=== PATIENT | male | born 1985 | race Caucasian/White ===

== ENCOUNTER 2016-09-16 18:42 | Observation (INO) | payer BC ==
[~2016-09-16] VITALS: Ht 175.3 cm; Wt 73.3 kg
--- NOTE | 2016-09-16 18:54 | PHYS DOC ---
Adult General Chief Complaint Chief Complaint: ANXIETY/PANIC ATTACK HPI HPI Patient is a 30 year old male who presents with increased anxiety and thoughts of suicide. Patient states his family convinced him to come to the emergency room because they were scared acute harm himself. Patient admits that her last week and had thoughts of suicide. Patient states currently he is not suicidal. Patient did not want to share his plan how he wanted to harm himself. Patient states he's been having what he describes as "freak out" more consistently. Patient was on antianxiety medication at one time. Patient currently is on no medications. Patient denies any chest pain or shortness of breath. Patient has no other complaints. Pertinent exam findings: Tachycardia Anxiety ED course: Patient seen on arrival and a CBC, CMP, urine drug screen, TSH, EKG were ordered 2114: Patient underwent interview via tele-psych 2120: Discussed CC/HP/PMH with via tele-psych and recommends admit for detox and depression and also self-harm 2129: Discussed CC/HP/PMH with Dr. Jackson and recommends admit and would like a psych consult Pertinent findings: Urine positive for ethyl alcohol MDM: After reviewing the chart, CC/HPI/PMH, physical exam, lab results and talking with the tele-psych physician we will make the patient for medical detox and evaluation of his depression ideas of self-harm. Review of Systems Review of Systems Constitutional: Depression, anxiety Eyes: Denies change in visual acuity, redness, or eye pain [] HENT: Denies nasal congestion or sore throat [] Respiratory: Denies cough or shortness of breath [] Cardiovascular: No additional information not addressed in HPI [] GI: Denies abdominal pain, nausea, vomiting, bloody stools or diarrhea [] : Denies dysuria or hematuria [] Musculoskeletal: Denies back pain or joint pain [] Integument: Denies rash or skin lesions [] Physical Exam Physical Exam Constitutional: Well developed, well nourished, anxious, non-toxic appearance. [ ] HENT: Normocephalic, atraumatic, bilateral external ears normal, dry mucous membranes, no oral exudates, nose normal. [] Eyes: PERRLA, EOMI, conjunctiva normal, no discharge. [] Neck: Normal range of motion, no tenderness, supple, no stridor. [] Cardiovascular: Tachycardia, no murmur [] Lungs & Thorax: Bilateral breath sounds clear to auscultation [] Abdomen: Bowel sounds normal, soft, no tenderness, no masses, no pulsatile masses. [] Skin: Warm, dry, no erythema, no rash. [] Back: No tenderness, no CVA tenderness. [] Extremities: No tenderness, no cyanosis, no clubbing, ROM intact, no edema. [] Neurologic: Alert and oriented X 3, normal motor function, normal sensory function, no focal deficits noted. [] Psychologic: Depressed, anxious, history of thoughts of self-harm Current Patient Data Lab Results Laboratory Tests Test 09/16/16 18:56 09/16/16 19:17 Urine Collection Type Unknown Urine Color Yellow Urine Clarity Clear Urine pH 5.0 Urine Specific [place] 1.025 Urine Protein Neg (NEG-TRACE) Urine Glucose (UA) Neg mg/dL (NEG) Urine Ketones (Stick) Trace mg/dL (NEG) Urine Blood Neg (NEG) Urine Nitrite Neg (NEG) Urine Bilirubin Neg (NEG) Urine Urobilinogen Dipstick 0.2 mg/dL (0.2 mg/dL) Urine Leukocyte Esterase Neg (NEG) Urine RBC Occ /HPF (0-2) Urine WBC 1-4 /HPF (0-4) Urine Squamous Epithelial Cells Occ /LPF Urine Bacteria 0 /HPF (0-FEW) Urine Mucus Marked /LPF Urine Opiates Screen Neg (NEG) Urine Methadone Screen Neg (NEG) Urine Barbiturates Neg (NEG) Urine Phencyclidine Screen Neg (NEG) Urine Amphetamine/Methamphetamine Neg (NEG) Urine Benzodiazepines Screen Neg (NEG) Urine Cocaine Screen Neg (NEG) Urine Cannabinoids Screen Neg (NEG) Urine Ethyl Alcohol Pos (NEG) White Blood Count 7.9 x10^3/uL (4.0-11.0) Red Blood Count 5.37 x10^6/uL (4.30-5.70) Hemoglobin 16.7 g/dL (13.0-17.5) Hematocrit 47.5 % (39.0-53.0) Mean Corpuscular Volume 89 fL (79-100) Mean Corpuscular Hemoglobin 31 pg (25-35) Mean Corpuscular Hemoglobin Concent 35 g/dL (31-37) Red Cell Distribution Width 13.5 % (11.5-14.5) Platelet Count 269 x10^3/uL (140-400) Neutrophils (%) (Auto) 69 % (31-73) Lymphocytes (%) (Auto) 26 % (24-48) Monocytes (%) (Auto) 5 % (0-9) Eosinophils (%) (Auto) 1 % (0-3) Basophils (%) (Auto) 1 % (0-3) Neutrophils # (Auto) 5.4 x10^3uL (1.8-7.7) Lymphocytes # (Auto) 2.0 x10^3/uL (1.0-4.8) Monocytes # (Auto) 0.4 x10^3/uL (0.0-1.1) Eosinophils # (Auto) 0.0 x10^3/uL (0.0-0.7) Basophils # (Auto) 0.0 x10^3/uL (0.0-0.2) Sodium Level 139 mmol/L (136-145) Potassium Level 3.4 mmol/L (3.5-5.1) Chloride Level 99 mmol/L (98-107) Carbon Dioxide Level 22 mmol/L (21-32) Anion Gap 18 (6-14) Blood Urea Nitrogen 12 mg/dL (8-26) Creatinine 0.9 mg/dL (0.7-1.3) Estimated GFR (Cockcroft-Gault) 98.4 BUN/Creatinine Ratio 13 (6-20) Glucose Level 139 mg/dL (70-99) Calcium Level 8.8 mg/dL (8.5-10.1) Total Bilirubin 0.6 mg/dL (0.2-1.0) Aspartate Amino Transf (AST/SGOT) 22 U/L (15-37) Alanine Aminotransferase (ALT/SGPT) 27 U/L (16-63) Alkaline Phosphatase 101 U/L (46-116) Total Protein 8.0 g/dL (6.4-8.2) Albumin 4.5 g/dL (3.4-5.0) Albumin/Globulin Ratio 1.3 (1.0-1.7) EKG EKG EKG shows sinus tach rate of 106 no STEMI Radiology/Procedures Radiology/Procedures [] Course & Med Decision Making Course & Med Decision Making Pertinent Labs and Imaging studies reviewed. (See chart for details) [] Graciela Disclaimer Dragon Disclaimer This chart was dictated in whole or in part using Voice Recognition software in a busy, high-work load, and often noisy Emergency Department environment. It may contain unintended and wholly unrecognized errors or omissions. Departure Departure: Impression: Primary Impression: Depression Additional Impressions: Alcohol withdrawal History of suicidal ideation Disposition: ADMITTED INPATIENT Admitting Physician: Mayank Jackson Condition: STABLE Problem Qualifiers Primary Impression: Depression Depression Type: major depressive disorder Major depression recurrence: recurrent Active/Remission status: currently active Major depression episode severity: severe Psychotic features: without psychotic features Qualified Codes: F33.2 - Major depressive disorder, recurrent severe without psychotic features Additional Impressions: Alcohol withdrawal Complication of substance-induced condition: uncomplicated Qualified Codes: F10.230 - Alcohol dependence with withdrawal, uncomplicated ART HERNANDEZ DO September 16, 2016 18:54
--- NOTE | 2016-09-16 19:08 | EKG ---
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
[2016-09-16] MEDS ORDERED: LORazepam 2 MG/ML VIAL IV ONE ×2 (19:15→21:45)
[2016-09-16 19:36] LABS: BASO % 1 % (0-3); EOS % 1 % (0-3); HEMATOCRIT 47.5 % (39.0-53.0); HEMOGLOBIN 16.7 g/dL (13.0-17.5); LYMPH % 26 % (24-48); MEAN CORPUSCULAR HEMOGLOBIN 31 pg (25-35); MEAN CORPUSCULAR HGB CONC 35 g/dL (31-37); MEAN CORPUSCULAR VOLUME 89 fL (79-100); MONO # 0.4 x10^3/uL (0.0-1.1); MONO % 5 % (0-9); NEUT # 5.4 x10^3uL (1.8-7.7); NEUT % 69 % (31-73); PLATELET COUNT 269 x10^3/uL (140-400); RED BLOOD COUNT 5.37 x10^6/uL (4.30-5.70); RED CELL DISTRIBUTION WIDTH 13.5 % (11.5-14.5); WHITE BLOOD COUNT 7.9 x10^3/uL (4.0-11.0)
[2016-09-16 19:45] LABS: AMPHETAMINE/METHAMPHETAMINE NEG (NEG); BARBITURATES NEG (NEG); BENZODIAZEPINES NEG (NEG); CANNABINOIDS NEG (NEG); COCAINE NEG (NEG); METHADONE NEG (NEG); OPIATES NEG (NEG); PHENCYCLIDINE NEG (NEG)
[2016-09-16 19:45] LABS: ALBUMIN 4.5 g/dL (3.4-5.0); ALBUMIN/GLOBULIN RATIO 1.3 (1.0-1.7); CALCIUM 8.8 mg/dL (8.5-10.1); CREATININE 0.9 mg/dL (0.7-1.3); GFR 98.4; POTASSIUM 3.4 mmol/L (3.5-5.1); TOTAL BILIRUBIN 0.6 mg/dL (0.2-1.0)
[2016-09-16 19:54] LABS: BILIRUBIN,URINE NEG (NEG); CLARITY,URINE CLEAR; COLOR,URINE YELLOW; GLUCOSE,URINE NEG (NEG); UROBILINOGEN,URINE 0.2 mg/dL (0.2 mg/dL)
[2016-09-16 19:55] LABS: BACTERIA,URINE 0 /HPF (0-FEW); NITRITE,URINE NEG (NEG); RBC,URINE OCC /HPF (0-2); SQUAMOUS EPITHELIAL CELL,UR OCC /LPF
[2016-09-16] MEDS ORDERED: ONDANSETRON PF 4 MG/2 ML VIAL. IV PRN (21:45)
[2016-09-16] MEDS ORDERED: ACETAMINOPHEN 325 MG TABLET PO PRN (21:45)
[2016-09-16] MEDS ORDERED: IV NORMAL SALINE 1,000ML 1,000 ML IV ONE (21:45)
[2016-09-16] MEDS ORDERED: fentaNYL PF 100 MCG/2 ML VIAL IV PRN (21:45)
[2016-09-16 22:00] VITALS: BP 130/82
[2016-09-16] MEDS ORDERED: THIAMINE 100 MG in IV NORMAL SALINE 50ML 50 ML IV SCH (22:30)
[2016-09-16] MEDS: IV NORMAL SALINE 1,000ML 1,000 ML IV SCH (22:33)
[2016-09-16 23:00] VITALS: BP 117/62
[2016-09-17] VITALS (11 sets, daily range): BP systolic 97–137; BP diastolic 54–73
[2016-09-17] MEDS ORDERED: LORazepam 2 MG/ML VIAL IV PRN ×2 (00:15→08:15)
[2016-09-17] MEDS ORDERED: DIPH25CA58 PO (00:50)
--- NOTE | 2016-09-17 01:40 | ACF ---
Admission Criteria Forms PSYCHIATRIC DISORDERS Clinical Indications for Inpatient Care (Place 'X' for any and all applicable criteria): Ongoing inpatient care may be needed for ANY ONE of the following(1)(2)(3)(4)(6) (7)(8): [ ]I. Danger to self or others not manageable at lower level of care. [ ]II. Grave disability (eg, inability to perform self care necessary at lower level of care) [ ]III. Agitation or inappropriate behavior interfering with care for primary condition (eg, attempting to discontinue lines or drains prematurely, unable to cooperate with respiratory care) [X ]IV. Severe disability or disorder indicated by ALL of the following: [X ]a) Severe behavioral health disorder-related symptoms or condition indicated by ANY ONE of the following: [ ]i) Severe problem with cognition, memory, judgment, or impulse control [X]ii) Severe clinical manifestations (eg, hallucinations, delusions, other acute psychotic symptoms, leann, extreme agitation or anxiety) [X ]b) Patient management at lower level of care is not feasible until acute intervention or modification is initiated. Extended stay beyond goal length of stay for the primary condition may be indicated when ANY ONE of the following is present: (1)(2)(3)(4): [ ]a) Patient is a danger to self or others and not manageable at lower level of care. [ ]b) Behavior crisis management, including physical or chemical restraints, is required and is not available at a lower level of care. [ ]c) Behavioral symptoms (e.g., agitation, somnolence, inappropriate behavior) are present, and are not manageable at a lower level of care. [ ]d) Patient cannot understand follow-up treatment and crisis plan. [ ]e) Provider and supports are not sufficiently available at lower level of care. [ ]f) Patient cannot participate (e.g., verify absence of plan for harm) and is in needed of monitoring. The original [facility] [employer] content created by [facility] [employer] has been revised. The portions of the content which have been revised are identified through the use of italic text or in bold, and [facility] has neither reviewed nor approved the modified material. All other unmodified content is copyright [facility]. Please see references footnoted in the original [facility] edition 2016 Admission Criteria Met?: Yes JERE ANG September 17, 2016 01:40
[2016-09-17] MEDS: IV NORMAL SALINE 1,000ML 1,000 ML IV SCH ×3 (05:51→11:20)
[2016-09-17 06:20] LABS: BASO % 0 % (0-3); EOS # 0.3 x10^3/uL (0.0-0.7); EOS % 4 % (0-3); HEMATOCRIT 40.3 % (39.0-53.0); HEMOGLOBIN 14.3 g/dL (13.0-17.5); LYMPH # 2.2 x10^3/uL (1.0-4.8); LYMPH % 28 % (24-48); MEAN CORPUSCULAR HEMOGLOBIN 31 pg (25-35); MEAN CORPUSCULAR HGB CONC 36 g/dL (31-37); MEAN CORPUSCULAR VOLUME 89 fL (79-100); MONO # 0.7 x10^3/uL (0.0-1.1); MONO % 8 % (0-9); NEUT # 4.8 x10^3uL (1.8-7.7); NEUT % 60 % (31-73); PLATELET COUNT 213 x10^3/uL (140-400); RED BLOOD COUNT 4.55 x10^6/uL (4.30-5.70); RED CELL DISTRIBUTION WIDTH 13.6 % (11.5-14.5); WHITE BLOOD COUNT 8.1 x10^3/uL (4.0-11.0)
[2016-09-17 06:28] LABS: CALCIUM 7.8 mg/dL (8.5-10.1); CREATININE 0.9 mg/dL (0.7-1.3); GFR 98.4; POTASSIUM 3.4 mmol/L (3.5-5.1)
[2016-09-17] MEDS ORDERED: POTASSIUM CHLORIDE 20 MEQ TABLET.ER. PO ONE (08:00)
[2016-09-17] MEDS ORDERED: MVI, ADULT NO.4 WITH VIT K 10 ML, THIAMINE 100 MG, FOLIC ACID 1 MG in IV NORMAL SALINE ... IV SCH ×4 (09:00)
--- NOTE | 2016-09-17 14:26 | SSS ---
ADMIT DATE: 09/17/2016 HISTORY OF PRESENT ILLNESS: The patient is a 30-year-old male patient, who presented to the Emergency Room with increased anxiety and thoughts of suicide. He states that his family has convinced him to come to the Emergency Room because they were scared that he will harm himself. He admits that over the last week he had thoughts of suicide. The patient states currently he is not suicidal, did not want to share his plans; however, he wanted to harm himself. He apparently was on antianxiety medication at one point of time, but currently he is on no medication. He denies any other complaints. PAST MEDICAL HISTORY: Significant for anxiety, alcoholism and major depression. PAST SURGICAL HISTORY: Unremarkable. FAMILY HISTORY: Unremarkable. SOCIAL HISTORY: He is single. Does not smoke, drink alcohol or use recreational drugs. MEDICATIONS: He is currently on no medication. ALLERGIES: He is allergic to SULFONAMIDE ANTIBIOTIC. REVIEW OF SYSTEMS: As per history of present illness. PHYSICAL EXAMINATION: VITAL SIGNS: On arrival to the Emergency Room, the patient was tachycardic with an heart rate of 128, blood pressure was 110/79, temperature was 98, respiratory rate was 20, and oxygen saturation was 96% on room air. HEAD, EYES, EAR, NOSE AND THROAT: Showed normocephalic, atraumatic. NECK: Supple. HEART: Showed normal first and second heart sounds with no gallop, rub or murmur. CHEST: Clear to auscultation. No crepitation or rhonchi. ABDOMEN: Distended, soft, nontender. No guarding or rigidity. No organomegaly. All hernial orifices intact. Bowel sounds normal. PSYCHOLOGIC: He was clearly depressed, anxious, has history of thoughts of self-harm. LABORATORY DATA: While in the Emergency Room, he has had lab work done, which showed that his white cell count to be 7900, hemoglobin 16.7, hematocrit , MCV 89 and platelet count 269,000 with normal manual differential. His chemistry showed a serum sodium 159, potassium 3.4, chloride 99, bicarbonate 22, anion gap of 18, BUN 18, creatinine 0.9, estimated GFR was 98 mL per minute. His blood glucose was 139. Calcium was 8.8. Total bilirubin, AST, ALT, alkaline phosphatase were normal. Total protein was 8, albumin was 4.5. His TSH was 1.080. Urinalysis was essentially unremarkable. The urine was yellow, clear with a pH of 5, specific gravity of 1.025. The urine was negative for protein, ketones, glucose and it was negative for blood, nitrite, leukocyte esterase. There are occasional rbc's, 1 to 4 wbc's, no bacteria. His toxic screen was positive for alcohol. Apparently the ER physician discussed the presentation with the psychiatrist, who recommended admission for detoxification of depression and also for self-harm. We did consult our top case assembler. He was apparently admitted at [facility] in [place] for inpatient psychiatric stabilization. The patient was hemodynamically stable, afebrile and all his lab works were within normal range. JANNETTE MARSHALL MD DR: LUZ ELENA/junito JOB#: [id number] / [id number]
== END 2016-09-17 12:10 | disposition short-term general hospital (02) ==
LOC: ER 18:42 → INTOOBSV 21:40 → ICU 21:40
PROVIDERS: ADMIT Internal Medicine; ATTEND Internal Medicine
DX: F41.9 Anxiety disorder, unspecified (principal); F32.9 Major depressive disorder, single episode, unspecified; R45.851 Suicidal ideations; F10.239 Alcohol dependence with withdrawal, unspecified
CPT/HCPCS: 36415; 80048; 80053; 81001; 84443; 85027; 87641; 93005; 96365; 96366; 96367; 96375; 96376; 99285; G0378; G0480; G0481; J2060; G0379; J7030

== ENCOUNTER 2020-01-30 16:22 | Emergency (ER) | payer SELFPAY ==
[~2020-01-30] VITALS: Ht 175.3 cm; Wt 90.9 kg
[~2020-01-30 16:22] MED LIST: DIPH25CA58 PO
[2020-01-30] MEDS ORDERED: IV NORMAL SALINE 1,000ML 1,000 ML IV ONE ×2 (16:30→18:00)
[2020-01-30] MEDS ORDERED: ONDANSETRON PF 4 MG/2 ML VIAL. IVP ONE (16:30)
[2020-01-30] MEDS ORDERED: FAMOTIDINE 20 MG/2 ML VIAL IVP ONE (16:30)
[2020-01-30 16:50] LABS: BASO % 1 % (0-3); EOS % 0 % (0-3); HEMATOCRIT 45.3 % (39.0-53.0); HEMOGLOBIN 15.2 g/dL (13.0-17.5); LYMPH # 1.3 x10^3/uL (1.0-4.8); LYMPH % 29 % (24-48); MEAN CORPUSCULAR HEMOGLOBIN 31 pg (25-35); MEAN CORPUSCULAR HGB CONC 34 g/dL (31-37); MEAN CORPUSCULAR VOLUME 91 fL (79-100); MONO # 0.4 x10^3/uL (0.0-1.1); MONO % 9 % (0-9); NEUT # 2.7 x10^3uL (1.8-7.7); NEUT % 61 % (31-73); PLATELET COUNT 217 x10^3/uL (140-400); RED BLOOD COUNT 4.98 x10^6/uL (4.30-5.70); RED CELL DISTRIBUTION WIDTH 13.9 % (11.5-14.5); WHITE BLOOD COUNT 4.5 x10^3/uL (4.0-11.0)
[2020-01-30 16:53] LABS: CREATININE 1.5 mg/dL (0.7-1.3); GFR 53.3; POTASSIUM 3.4 mmol/L (3.5-5.1)
[2020-01-30 16:59] LABS: ALBUMIN/GLOBULIN RATIO 1.2 (1.0-1.7); MAGNESIUM 2.2 mg/dL (1.8-2.4); TOTAL BILIRUBIN 0.4 mg/dL (0.2-1.0); TOTAL PROTEIN 7.3 g/dL (6.4-8.2)
--- NOTE | 2020-01-30 17:00 | PHYS DOC ---
Past History Past Medical History: Bipolar Past Surgical History: Appendectomy, Other Additional Past Surgical Histo: wisdom teeth Smoking: Non-smoker (Former smoker) Alcohol Use: Sober Drug Use: Marijuana, Opiates General Adult EDM: Chief Complaint: OVERDOSE HPI: HPI: Patient is a 34-year-old male with a history of polysubstance abuse who presents to the emergency room with an accidental drug overdose. Patient states that he was at his friend's house around 3 PM when he "snorted" a drug up his nose. He states he does not remember what happened immediately after the use of the drug. He states he does not know what he drug he used. He reports to abusing alcohol, cocaine, opioids, benzodiazepines in the past and has been sober for 4-5 years before today's relapse. He does have a history of suicidal attempt on October of this year when he overdosed on Ambien. He states that he did not seek medical assistance at that time. Currently he is denying any suicidal or homicidal intent. He denies having any chest pain, shortness of breath, pain. He reports to having nausea, vomiting, body aches, drowsiness at this time. Per EMS, patient was found down in his friend's house and appeared cyanotic upon their arrival. He was given 2mg of Narcan intranasally en route by EMS. Review of Systems: Review of Systems: Constitutional: Denies fever or chills Eyes: Denies redness or eye pain HENT: Denies nasal congestion or sore throat Respiratory: Denies cough or shortness of breath Cardiovascular: Denies chest pain or palpitations GI: Denies abdominal pain, reports nausea and vomiting : Denies dysuria or hematuria Musculoskeletal: Denies back pain or joint pain Integument: Denies rash or skin lesions Neurologic: Denies headache, focal weakness or sensory changes, reports drow siness Complete systems were reviewed and found to be within normal limits, except as documented in this note. Current Medications: Current Meds: Current Medications Medications (Trade) Dose Ordered Sig/Atilio Start Time Stop Time Status Last Admin Dose Admin Famotidine (Pepcid Vial) 20 mg 1X ONCE 01/30/20 16:30 01/30/20 16:36 DC 01/30/20 16:43 20 MG Ondansetron HCl (Zofran) 4 mg 1X ONCE 01/30/20 16:30 10/7/20 16:36 DC 01/30/20 16:43 4 MG Sodium Chloride 1,000 ml @ 1,000 mls/hr 1X ONCE 01/30/20 16:30 01/30/20 17:29 01/30/20 16:41 1,000 MLS/HR Allergies: Allergies: Allergies Coded Allergies Type Severity Reaction Last Updated Verified Sulfa (Sulfonamide Antibiotics) Allergy Unknown 09/16/16 Yes Physical Exam: PE: Constitutional: Well developed, no acute distress, non-toxic appearance, disheveled, appears lethargic and diaphoretic HENT: Normocephalic, atraumatic Eyes: Pupils are pinpoint at 3 mm, equal, round, and nonreactive to light, EOMI, conjunctiva normal, no discharge Neck: Normal range of motion, no tenderness, supple Lungs & Thorax: No respiratory distress, equal chest rise and fall Abdomen: Soft, no tenderness Skin: Warm, dry, no erythema, no rash Back: No tenderness, no CVA tenderness Extremities: No tenderness, ROM intact, no edema Neurologic: Alert and oriented X 3, normal motor function, normal sensory function, no focal deficits noted Psychologic: Affect flat, judgment abnormal Current Patient Data: Labs: Laboratory Tests Test 01/30/20 16:30 White Blood Count 4.5 x10^3/uL (4.0-11.0) Red Blood Count 4.98 x10^6/uL (4.30-5.70) Hemoglobin 15.2 g/dL (13.0-17.5) Hematocrit 45.3 % (39.0-53.0) Mean Corpuscular Volume 91 fL (79-100) Mean Corpuscular Hemoglobin 31 pg (25-35) Mean Corpuscular Hemoglobin Concent 34 g/dL (31-37) Red Cell Distribution Width 13.9 % (11.5-14.5) Platelet Count 217 x10^3/uL (140-400) Neutrophils (%) (Auto) 61 % (31-73) Lymphocytes (%) (Auto) 29 % (24-48) Monocytes (%) (Auto) 9 % (0-9) Eosinophils (%) (Auto) 0 % (0-3) Basophils (%) (Auto) 1 % (0-3) Neutrophils # (Auto) 2.7 x10^3uL (1.8-7.7) Lymphocytes # (Auto) 1.3 x10^3/uL (1.0-4.8) Monocytes # (Auto) 0.4 x10^3/uL (0.0-1.1) Eosinophils # (Auto) 0.0 x10^3/uL (0.0-0.7) Basophils # (Auto) 0.0 x10^3/uL (0.0-0.2) Sodium Level 138 mmol/L (136-145) Potassium Level 3.4 mmol/L (3.5-5.1) L Chloride Level 101 mmol/L (98-107) Carbon Dioxide Level 25 mmol/L (21-32) Anion Gap 12 (6-14) Blood Urea Nitrogen 13 mg/dL (8-26) Creatinine 1.5 mg/dL (0.7-1.3) H Estimated GFR (Cockcroft-Gault) 53.3 BUN/Creatinine Ratio 9 (6-20) Glucose Level 337 mg/dL (70-99) H Calcium Level 8.0 mg/dL (8.5-10.1) L Magnesium Level Pending Total Bilirubin Pending Aspartate Amino Transferase (AST) Pending Alanine Aminotransferase (ALT) Pending Alkaline Phosphatase Pending Total Protein Pending Albumin Pending Albumin/Globulin Ratio Pending Vital Signs: Vital Signs Date Time Temp Pulse Resp B/P (MAP) Pulse Ox O2 Delivery O2 Flow Rate FiO2 01/30/20 16:28 98.4 105 16 127/84 (98) 95 Room Air EKG: EKG: KG at 1652 is normal sinus rhythm with a heart rate of 95, NE 176, QRS 88, QT/QTC 360/456, and no ST elevations. Course & Med Decision Making: Course & Med Decision Making Pertinent Labs studies reviewed. (See chart for details) Patient is a 34-year-old male with a history of polysubstance abuse who presents to the emergency room with an accidental drug overdose. Patient states he does not remember the events of the episode at this time. He was given Narcan by EMS prior to arrival to the hospital. Labs were drawn and symptoms were addressed. Patient was kept in the ED for monitoring due to the possibility of the requirement of additional doses of Narcan. Patient's vitals remained stable throughout his stay here. Labs were within normal limits. Patient appears com fortable at re-eval and expresses that he is comfortable for discharge with his father who will be closely monitoring him at home. Patient stable for discharge with outpatient follow-up with PCP. Discussed findings and plan with patient, who acknowledges understanding and agreement. Return precautions were given. Dragon Disclaimer: Dragon Disclaimer: This electronic medical record was generated, in whole or in part, using a voice recognition dictation system. Departure Departure: Impression: Primary Impression: Drug overdose Qualified Codes: T50.901A - Poisoning by unspecified drugs, medicaments and biological substances, accidental (unintentional), initial encounter Disposition: HOME/RESIDENCE PRIOR TO ADM Condition: IMPROVED Referrals: PCPJULIETTE (PCP) Patient Instructions: Alcohol and Drug Addiction, Finding Treatment, Drug Abuse, FAQs JODI PAYAN DO Jan 30, 2020 17:00
[2020-01-30 19:18] VITALS: BP 121/64
[2020-01-30 19:45] LABS: ACETAMIN < 2.0 mcg/mL (10-30); SALIC < 2.8 mg/dL (2.8-20.0)
[2020-01-30 19:46] LABS: ETHANOL < 10 mg/dL (0-10)
[2020-01-30 20:00] LABS: CLARITY,URINE CLEAR; COLOR,URINE YELLOW
[2020-01-30 20:01] LABS: BILIRUBIN,URINE NEG (NEG); GLUCOSE,URINE >=1000 mg/dL (NEG); NITRITE,URINE NEG (NEG); UROBILINOGEN,URINE 0.2 mg/dL (0.2 mg/dL); WBC,URINE OCC /HPF (0-4)
[2020-01-30 20:02] LABS: BACTERIA,URINE 0 /HPF (0-FEW)
[2020-01-30 20:04] LABS: BARBITURATES NEG (NEG); BENZODIAZEPINES NEG (NEG); CANNABINOIDS NEG (NEG); COCAINE NEG (NEG); METHADONE NEG (NEG); OPIATES NEG (NEG); PHENCYCLIDINE NEG (NEG)
[2020-01-30 20:05] LABS: AMPHETAMINE/METHAMPHETAMINE NEG (NEG)
--- NOTE | 2020-01-30 21:04 | EKG ---
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
== END 2020-01-30 19:23 | disposition home or self-care (01) ==
LOC: ER 16:22
DX: T50.901A Poisoning by unspecified drugs, medicaments and biological substances, accidental (unintentional), initial encounter (principal); R11.2 Nausea with vomiting, unspecified; F31.9 Bipolar disorder, unspecified; F12.10 Cannabis abuse, uncomplicated; F14.10 Cocaine abuse, uncomplicated; Z88.2 Allergy status to sulfonamides; Y92.89 Other specified places as the place of occurrence of the external cause
CPT/HCPCS: 36415; 80053; 80307; 80329; 81001; 83735; 85025; 93005; 96361; 96374; 96375; 99284; G0480; J2405; J3490; J7030